=== PATIENT | male | born 1970 | race Caucasian/White ===

== ENCOUNTER 2022-05-29 23:28 | Observation (INO) ==
[2022-05-30 00:25] LABS: Prothrombin Time 10.8 Seconds (9.4-12.1)
[2022-05-30 00:28] LABS: Activated Partial Thrombo Time 32.1 Seconds (26.0-36.0)
[2022-05-30] MEDS ORDERED: Aspirin 325 MG TABLET PO ONE (00:36)
[2022-05-30 00:41] LABS: Basophils # 0.1 K/mcL (0.0-0.2); Basophils % 1.2 %; Eosinophils # 0.5 K/mcL (0.0-0.6); Eosinophils % 5.6 %; Hematocrit 45.9 % (37.5-50.1); Hemoglobin 15.8 g/dL (12.9-16.9); Immature Granulocytes % 0.7 % (0-4); Lymphocytes # 2.2 K/mcL (0.6-4.6); Lymphocytes % 26.4 %; Mean Corpuscular HGB Conc 34.4 g/dL (31.6-35.5); Mean Corpuscular Hemoglobin 29.3 pg (28.0-33.3); Mean Corpuscular Volume 85.2 fL (83.0-100.0); Monocytes # 0.7 K/mcL (0.0-1.3); Monocytes % 8.2 %; Neutrophils # 4.7 K/mcL (1.6-8.9); Platelet Count 228 K/mcL (140-400); Red Blood Count 5.39 M/mcL (4.19-5.50); Red Cell Distribution Width 11.9 % (11.5-14.5); Segmented Neutrophils % 57.9 %; White Blood Count 8.2 K/mcL (4.3-11.1)
[2022-05-30] MEDS: Nitroglycerin 0.4 MG TAB.SUBL SL PRN ×2 (00:50→00:57)
[2022-05-30 00:52] LABS: BUN/Creatinine Ratio 14 (6-26); Blood Urea Nitrogen 22 mg/dL (6-20); Calcium 8.9 mg/dL (8.6-10.3); Carbon Dioxide 22 mEq/L (23-29); Chloride 102 mEq/L (98-107); Glucose 229 mg/dL (70-105); Osmolality,Calculated 287 (280-300); Potassium 4.5 mEq/L (3.5-5.1); Sodium 133 mEq/L (136-145)
[2022-05-30 00:54] LABS: Troponin I < 0.03 ng/mL (< 0.04)
[2022-05-30] MEDS ORDERED: 0.9 % Sodium Chloride 1,000 ML IVC ONE (01:40)
[2022-05-30] MEDS ORDERED: Ondansetron ODT 4 MG TAB.RAPDIS SL PRN (01:56)
[2022-05-30] MEDS ORDERED: Acetaminophen 325 MG TABLET PO PRN (01:56)
[2022-05-30] MEDS ORDERED: Naloxone 0.4 MG/ML INJ IVP PRN (01:56)
[2022-05-30] MEDS ORDERED: Melatonin 3 MG TABLET PO PRN (01:56)
[2022-05-30] MEDS ORDERED: D5% in Water 1,000 ML IVC PRN (02:22)
[2022-05-30] MEDS ORDERED: Dextrose Gel 15 GM/37.5 ML TUBE PO PRN ×2 (02:22)
[2022-05-30] MEDS ORDERED: *HR* Dextrose 50 % in Water (Syg) 50 ML SYRINGE IVP PRN (02:22)
[2022-05-30 04:04] LABS: Bilirubin,Urine Negative (Negative); Blood,Urine Negative (Negative); Clarity,Urine Clear (Clear); Color,Urine Colorless (Yellow); Glucose,Urine (UA) >=1000 mg/dL (Normal); Ketones,Urine Negative (Negative); Leukocyte Esterase,Urine Negative (Negative); Nitrite,Urine Negative (Negative); Protein,Urine Negative (Neg-Trace); RBC,Urine 0-3 per hpf (0-3); Specific Gravity,Urine 1.029 (1.010-1.025); Urobilinogen,Urine Normal (Normal); WBC,Urine 0-3 per hpf (0-3)
[2022-05-30 04:08] LABS: Amphetamine Screen,Urine Negative ng/mL (Cutoff=1000); Barbiturate Screen,Urine Negative ng/mL (Cutoff=200); Benzodiazepines Screen,Urine Negative ng/mL (Cutoff=200); Cannabinoid Screen,Urine Negative ng/mL (Cutoff = 50); Cocaine Screen,Urine Negative ng/mL (Cutoff= 300); Opiate Screen,Urine Negative ng/mL (Cutoff=300); Phencyclidine Screen,Urine Negative ng/mL (Cutoff=25)
[2022-05-30] MEDS: Insulin LISPRO 300 UNITS/3 ML VIAL SUBQ SCH ×2 (06:04→11:39)
[2022-05-30 06:43] LABS: Immature Platelets 8.7 % (1.1-6.1); Mean Corpuscular HGB Conc 33.5 g/dL (31.6-35.5); Red Cell Distribution Width 11.7 % (11.5-14.5)
[2022-05-30 06:47] LABS: Hematocrit 45.7 % (37.5-50.1); Hemoglobin 15.3 g/dL (12.9-16.9); Mean Corpuscular Hemoglobin 28.6 pg (28.0-33.3); Mean Corpuscular Volume 85.4 fL (83.0-100.0); Mean Platelet Volume 11.3 fL (9.4-12.4); Red Blood Count 5.35 M/mcL (4.19-5.50); White Blood Count 6.2 K/mcL (4.3-11.1)
[2022-05-30 07:01] LABS: Calcium 8.2 mg/dL (8.6-10.3); Chol/HDL Ratio 5.9 (0-4.9); Phosphorous 3.4 mg/dL (2.7-4.5); Potassium 4.1 mEq/L (3.5-5.1)
[2022-05-30 07:14] LABS: Thyroid Stimulating Hormone 2.332 mcIU/mL (0.340-5.600)
[2022-05-30 08:49] LABS: Estimated Average Glucose 220 mg/dl; Hemoglobin A1C 9.3 %
[2022-05-30] MEDS ORDERED: 0.9 % Sodium Chloride 1,000 ML IVC SCH (10:30)
[2022-05-30] MEDS ORDERED: *HR* Heparin 10,000 UNIT/10 ML VIAL ONE (11:19)
[2022-05-30] MEDS ORDERED: Iopamidol - 370 200 ML INFUS..BTL ONE (11:19)
[2022-05-30] MEDS ORDERED: Nitroglycerin 1,000 MCG/5 ML VIAL IV ONE (11:19)
[2022-05-30] MEDS ORDERED: 0.9 % Sodium Chloride 1,000 ML ONE (11:19)
[2022-05-30] MEDS ORDERED: Heparin 1,000 UNITS/500 mL 500 ML ONE (11:19)
[2022-05-30] MEDS ORDERED: *HR* Midazolam HCl 2 MG/2 ML VIAL ONE (11:45)
[2022-05-30] MEDS ORDERED: *HR* FentaNYL (PF) 100 MCG/2 ML VIAL ONE (11:45)
[2022-05-30 15:26] VITALS: BP 120/82; PULSE 84; TEMP 98.3; O2SAT 92
[2022-05-31] MEDS ORDERED: Aspirin 81 MG TAB.CHEW PO SCH (09:00)
== END 2022-05-30 17:14 | disposition home or self-care (01) ==
LOC: 3BNU 23:28 → EMEROOARM 23:28 → SUATTDRO 05-30 02:34 → 3BNU 05-30 03:05
PROVIDERS: ADMIT Internal Medicine; ATTEND Registered Nurse